=== PATIENT | male | born 1985 | race Two or more races ===

== ENCOUNTER 2017-03-02 16:07 | Emergency (ER) | payer MEDICAID ==
[~2017-03-02] VITALS: Ht 195.6 cm; Wt 97.5 kg
[2017-03-02 16:07] VITALS: BP 130/86
== END 2017-03-02 18:26 | disposition home or self-care (01) ==
LOC: ER 16:09
DX: S09.90XA Unspecified injury of head, initial encounter (principal); S00.91XA Abrasion of unspecified part of head, initial encounter; J45.909 Unspecified asthma, uncomplicated; Z88.1 Allergy status to other antibiotic agents; Z88.8 Allergy status to other drugs, medicaments and biological substances; Z23 Encounter for immunization; W20.8XXA Other cause of strike by thrown, projected or falling object, initial encounter; Y93.89 Activity, other specified; Y92.89 Other specified places as the place of occurrence of the external cause; Y99.0 Civilian activity done for income or pay
CPT/HCPCS: 90471; 90715; 99283; A4606; Z7610